=== PATIENT | male | born 1980 | race Caucasian/White ===

== ENCOUNTER 2016-10-08 22:43 | Emergency (ER) | payer SELFPAY ==
[2016-10-08 22:54] VITALS: BP 125/82; PULSE 122; RESP 16; TEMP 98.4; O2SAT 96
--- NOTE | 2016-10-08 23:06 | EDPHY ---
H & P Stated Complaint: MED CLEAR- LSD HPI/ROS: HPI CHIEF COMPLAINT: LSD intoxication, medical clearance for usp HISTORY OF PRESENT ILLNESS: This patient 36-year-old male he presents emergency room in police custody, after doing LSD this evening. Upon arrival here to the emergency room he is, cooperative he is answer my questions appropriately. He tells me knows where he is, tells me that he did LSD this evening. He has no medical complaints. He does tell me his chronic shoulder pain and chronic knee pain. He smokes marijuana daily. In the emergency room it was noted upon arrival he is slightly tachycardic to 120s. He has no medical complaints he denies chest pain or shortness of breath. Past Medical History: Chronic shoulder pain, multiple bilateral shoulder surgeries, chronic knee pain with knee surgery Past Surgical History: Shoulder surgery, knee surgery Social History: Admits to daily marijuana use, LSD this evening Family History: Noncontributory ROS REVIEW OF SYSTEMS: A comprehensive 10 point review of systems is otherwise negative aside from elements mentioned in the history of present illness. Exam Constitutional appears well nontoxic, triage nursing summary reviewed, vital signs reviewed, awake/alert. Eyes normal conjunctivae and sclera, EOMI, PERRLA. HENT normal inspection, atraumatic, moist mucus membranes, no epistaxis, neck supple/ no meningismus, no raccoon eyes. Respiratory clear to auscultation bilaterally, normal breath sounds, no respiratory distress, no wheezing. Cardiovascular tachycardia, regular rhythm, no murmur, no edema, distal pulses normal. Gastrointestinal soft, non-tender, no rebound, no guarding, normal bowel sounds, no distension, no pulsatile mass. Genitourinary no CVA tenderness. Musculoskeletal no midline vertebral tenderness, full range of motion, no calf swelling, no tenderness of extremities, no meningismus, good pulses, neurovascularly intact. Skin pink, warm, & dry, no rash, skin atraumatic. Neurologic awake, alert and oriented x 3, AAOx3, moves all 4 extremities equally, motor intact, sensory intact, CN II-XII intact, normal cerebellar, normal vision, normal speech. Psychiatric normal mood/affect. Heme/Lymph/Immune no lymphadenopathy. Differential Diagnosis: Includes but is not limited to in a particular order, LSD intoxication, marijuana intoxication, dehydration, medical clearance for usp Medical Decision Making: This patient has no acute medical issues specifically denies any focal medical complaint. He does admitting to doing LSD tonight. He was slightly tachycardic upon arrival. However appears well,, cooperative. He is medically cleared for usp. Source: Patient - Personal History Current Tetanus/Diphtheria Vaccine: Unsure Current Tetanus Diphtheria and Acellular Pertussis (TDAP): Unsure - Medical/Surgical History Hx Asthma: No Hx Chronic Respiratory Disease: No Hx Diabetes: No Hx Cardiac Disease: No Hx Renal Disease: No Hx Cirrhosis: No Hx Alcoholism: No Hx HIV/AIDS: No Hx Splenectomy or Spleen Trauma: No Other PMH: PMH:SCHIZOAFFECTIVE,BIPOLAR,POLY SUBSTANCE ABUSE. 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 This patient medically cleared for usp. Referrals: Patient,NotPresent [Primary Care Provider] - As per Instructions
== END 2016-10-08 23:24 | disposition home or self-care (01) ==
LOC: EDUNIT#
DX: F16.10 Hallucinogen abuse, uncomplicated (principal); F17.200 Nicotine dependence, unspecified, uncomplicated